=== PATIENT | female | born 1940 | race Caucasian/White ===

== ENCOUNTER 2017-04-23 13:13 | Inpatient (IN) | payer OTHER, MEDICARE ==
--- NOTE | 2017-04-23 13:42 | EDPHY ---
H & P Smoking Status: Former smoker Time Seen by Provider: 04/23/17 13:24 HPI/ROS: CHIEF COMPLAINT: Dyspnea HISTORY OF PRESENT ILLNESS: 76-year-old female presents to the emergency department by private vehicle with her daughter complaining of ongoing dyspnea for the last 2 weeks. The patient states that she is having increasing difficulty walking around. She is unable to walk up a flight of stairs without feeling extremely winded. She has no pain in her chest. No headache. She does note that she has some swelling in her lower legs as well. She is visiting from [place]. She flew here and is scheduled to fly home in 2 days. She was recently on a cruise around [place] and spent the day traveling yesterday and feels "extremely exhausted ". REVIEW OF SYSTEMS: Constitutional: No fever, no chills. Eyes: No double or blurry vision. ENT: No sore throat. Respiratory: Short of breath as above. No cough. Cardiac: No chest pain. Gastrointestinal: No abdominal pain, vomiting or diarrhea. Genitourinary: No dysuria. Musculoskeletal: No neck or back pain. Skin: No rashes. Neurological: No headache. (Marcelina Diaza Darryl) Past Medical/Surgical History: Chronic kidney disease, depression, GERD, hysterectomy, cholecystectomy (Marcelina Diaza Darryl) Social History: , visiting from [place] (Eneida Diaz) Physical Exam: General Appearance: Alert, no distress. 36.7, 97% on room air. She is speaking in full sentences. She appears comfortable. Eyes: Pupils equal and round. Extraocular motions are all intact. ENT: Mouth: Mucous membranes moist. Respiratory: No wheezing, rhonchi, or rales, lungs are clear to auscultation. Cardiovascular: Regular rate and rhythm. Gastrointestinal: Abdomen is soft and nontender, no masses, no rebound or guarding, bowel sounds normal. Neurological: Alert and oriented x 3, cranial nerves II through XII grossly intact Skin: Warm and dry, no rashes. Musculoskeletal: Nontender to palpate along the cervical, thoracic or lumbar spine. Neck is supple. Extremities: 1 to 2+ pedal edema lower extremities bilaterally. Psychiatric: Patient is oriented X 3, there is no agitation. (Larissa Diazrina Darryl) Constitutional: Initial Vital Signs Temperature (C) 36.7 C 04/23/17 13:16 Heart Rate 90 04/23/17 13:16 Respiratory Rate 18 04/23/17 13:16 Blood Pressure 144/63 H 04/23/17 13:16 O2 Sat (%) 97 04/23/17 13:16 O2 Delivery Mode Room Air Allergies/Adverse Reactions: No Known Allergies Allergy (Unverified 04/23/17 13:15) Home Medications: Medication Instructions Recorded Acetaminophen [Acetaminophen ER] 1,300 mg PO BID PRN 04/23/17 Cholecalciferol (Vitamin D3) 5,000 unit PO DAILY 04/23/17 [Vitamin D3] Cyanocobalamin [Vitamin B12 (*)] 100 mcg PO DAILY 04/23/17 Desvenlafaxine Succinate [Pristiq 100 mg PO HS 04/23/17 ER] Diclofenac Sodium 1% [Voltaren Gel 4 gm TP QID PRN 04/23/17 (*)] [place]-3 Fatty Acids [Fish Oil 1000 1,000 mg PO DAILY 04/23/17 mg (*)] Omeprazole [Prilosec 20 mg] 20 mg PO DAILY 04/23/17 Propylene Glycol/Peg 400 [Systane 1 drop EACHEYE PRN PRN 04/23/17 0.3-0.4% Eye Drops] buPROPion XL [Wellbutrin Xl] 150 mg PO HS 04/23/17 buPROPion XL [Wellbutrin Xl] 300 mg PO DAILY 04/23/17 Medical Decision Making - Diagnostics Imaging: I viewed and interpreted images myself - Diagnostics Imaging Results: Imaging Impressions Chest X-Ray 04/23/17 13:39 Impression: 1. Mild airways disease. Otherwise no acute process. 2. Moderate hiatal hernia. 3. Two old low thoracic mild compression fractures. Chest/Thorax CTA 04/23/17 14:29 Impression: 1. CT angio chest canceled prior to administering contrast. 2. Scanograms unchanged since one hour prior ED Course/Re-evaluation: I evaluated this patient and discussed the workup and care with Eneida Diaz. This patient is significantly anemic and is presenting here with shortness of breath. [place] This patient also problems with some peripheral edema and symptoms consistent with paroxysmal nocturnal dyspnea. Consequently, we will admit the patient to the hospital. Is not quite clear where she is bleeding from we will do a rectal exam. She will need blood products most likely and workup to make sure her she has a reasonable ejection fraction. (Aubrey Dale) 76-year-old female presents to the emergency department with 2 weeks of dyspnea on exertion. The patient is visiting from [place] and today she felt more fatigued and more short of breath and presented to the emergency department for evaluation. She denies pain in her chest. Upon further questioning the patient states that she really has not felt well for about a year. She has felt very low energy. It is within the last 2 weeks that she became increasingly more short of breath. She has especially short of breath when she is trying to walk a flight of stairs. Laboratory studies reveal hemoglobin of 7 and hematocrit of 22.6%. White blood cell count was normal. Platelets were normal. Creatinine is 1.1. Case was discussed with Dr. Aubrey Dale, secondary supervising physician, who agrees with patient being mid to the hospital. An echocardiogram has been ordered and is pending. EKG reveals normal sinus rhythm. This is reviewed by Dr. Aubrey Dale. Troponin was negative. BNP slightly elevated at 485. Patient's you D-dimer was just slightly elevated 0.74. I discussed this with Dr. Aubrey Dale and CT pulmonary angiogram was ordered. Dr. sunita german however has account for the patient's age and feels that 0.74 is normal for this patient and therefore does not need CT pulmonary angiogram. This order was canceled prior to her having any contrast or having the CT pulmonary angiogram. Patient will be admitted to the PCU to Dr. Bruno. (Eneida Diaz) Differential Diagnosis: Weakness including but not limited to electrolyte abnormality, depression, anxiety, CVA, spinal cord abnormality, and infectious causes. Shortness of breath including but not limited to pulmonary infectious process, COPD, asthma, pulmonary embolus and congestive heart failure. (Eneida Diaz) - Data Points Laboratory Results: Laboratory Results 04/23/17 13:45 04/23/17 13:45 04/23/17 04/23/17 04/23/17 14:34 14:04 13:45 WBC RBC Hgb Hct MCV MCH MCHC RDW Plt Count MPV Neut % (Auto) Lymph % (Auto) Emmet % (Auto) Eos % (Auto) Baso % (Auto) Nucleat RBC Rel Count Absolute Neuts (auto) Absolute Lymphs (auto) Absolute Monos (auto) Absolute Eos (auto) Absolute Basos (auto) Absolute Nucleated RBC Immature Gran % Immature Gran # D-Dimer Sodium Potassium Chloride Carbon Dioxide Anion Gap BUN Creatinine Estimated GFR Glucose Calcium Troponin I NT-Pro-B Natriuret Pep TSH 1.090 uIU/mL uIU/mL (0.465-4.680) Stool Occult Bld Scrn NEGATIVE (NEGATIVE) Patient ABO/Rh O POSITIVE Antibody Screen NEGATIVE Crossmatch IS Only See Detail 04/23/17 04/23/17 04/23/17 13:45 13:45 13:45 WBC 3.90 10^3/uL 10^3/uL (3.80-9.50) RBC 2.47 10^6/uL L 10^6/uL (4.18-5.33) Hgb 7.0 g/dL L g/dL (12.6-16.3) Hct 22.6 % L % (38.0-47.0) MCV 91.5 fL fL (81.5-99.8) MCH 28.3 pg pg (27.9-34.1) MCHC 31.0 g/dL L g/dL (32.4-36.7) RDW 14.6 % % (11.5-15.2) Plt Count 210 10^3/uL 10^3/uL (150-400) MPV 9.8 fL fL (8.7-11.7) Neut % (Auto) 65.9 % % (39.3-74.2) Lymph % (Auto) 19.0 % % (15.0-45.0) Emmet % (Auto) 12.8 % % (4.5-13.0) Eos % (Auto) 1.5 % % (0.6-7.6) Baso % (Auto) 0.3 % % (0.3-1.7) Nucleat RBC Rel Count 0.0 % % (0.0-0.2) Absolute Neuts (auto) 2.57 10^3/uL 10^3/uL (1.70-6.50) Absolute Lymphs (auto) 0.74 10^3/uL L 10^3/uL (1.00-3.00) Absolute Monos (auto) 0.50 10^3/uL 10^3/uL (0.30-0.80) Absolute Eos (auto) 0.06 10^3/uL 10^3/uL (0.03-0.40) Absolute Basos (auto) 0.01 10^3/uL L 10^3/uL (0.02-0.10) Absolute Nucleated RBC 0.00 10^3/uL 10^3/uL (0-0.01) Immature Gran % 0.5 % % (0.0-1.1) Immature Gran # 0.02 10^3/uL 10^3/uL (0.00-0.10) D-Dimer 0.74 ug/mLFEU H ug/mLFEU (0.00-0.50) Sodium 142 mEq/L mEq/L (134-144) Potassium 4.5 mEq/L mEq/L (3.5-5.2) Chloride 106 mEq/L mEq/L (97-110) Carbon Dioxide 26 mEq/l mEq/l (22-31) Anion Gap 10 mEq/L mEq/L (8-16) BUN 19 mg/dL mg/dL (7-23) Creatinine 1.1 mg/dL H mg/dL (0.6-1.0) Estimated GFR 48 Glucose 122 mg/dL H mg/dL (70-100) Calcium 8.8 mg/dL mg/dL (8.5-10.4) Troponin I < 0.012 ng/mL ng/mL (0.000-0.034) NT-Pro-B Natriuret Pep 485 pg/mL H pg/mL (0-450) TSH Stool Occult Bld Scrn Patient ABO/Rh Antibody Screen Crossmatch IS Only Medications Given: Discontinued Medications Sodium Chloride (Ns) 1,000 mls @ 0 mls/hr IV ONCE ONE PRN Reason: Wide Open Stop: 04/23/17 14:27 Last Admin: 04/23/17 14:40 Dose: 1,000 mls Departure - Departure Disposition: Home, Routine, Self-Care Clinical Impression: Anemia Qualifiers: Anemia type: unspecified type Qualified Code(s): D64.9 - Anemia, unspecified Fatigue Qualifiers: Fatigue type: unspecified Qualified Code(s): R53.83 - Other fatigue Dyspnea Qualifiers: Dyspnea type: unspecified Qualified Code(s): R06.00 - Dyspnea, unspecified Condition: Good
--- NOTE | 2017-04-23 13:51 | CPEKG ---
Heart Rate: 79 RR Interval: 759 P-R Interval: 156 QRSD Interval: 86 QT Interval: 384 QTC Interval: 441 P [place]: 2 QRS [place]: 9 T Wave [place]: 12 EKG Severity - NORMAL ECG - EKG Impression: SINUS RHYTHM Electronically Signed By: Aubrey Dale 23-Apr-2017 17:54:12
[2017-04-23 13:52] LABS: % IMMATURE GRANULYOCYTES 0.5 % (0.0-1.1); ABSOLUTE IMMATURE GRANULOCYTES 0.02 10^3/uL (0.00-0.10); ADD DIFF? NO; ADD MORPH? NO; ADD SCAN? NO; ATYPICAL LYMPHOCYTE FLAG 0 (0-99); FRAGMENT RBC FLAG 0 (0-99); HEMATOCRIT 22.6 % (38.0-47.0); LEFT SHIFT FLG 0 (0-99); LIPEMIA HEMOLYSIS FLAG 80 (0-99); MEAN CELL HEMOGLOBIN 28.3 pg (27.9-34.1); MEAN CELL VOLUME 91.5 fL (81.5-99.8); MEAN PLATELET VOLUME 9.8 fL (8.7-11.7); PLATELET CLUMPS FLAG 0 (0-99); PLATELET COUNT 210 10^3/uL (150-400); RED BLOOD CELL COUNT 2.47 10^6/uL (4.18-5.33); RED CELL DISTRIBUTION WIDTH 14.6 % (11.5-15.2)
[2017-04-23 14:11] LABS: ANION GAP 10 mEq/L (8-16); CALCIUM 8.8 mg/dL (8.5-10.4); CARBON DIOXIDE 26 mEq/l (22-31); CHLORIDE 106 mEq/L (97-110); CREATININE 1.1 mg/dL (0.6-1.0); GLOMERULAR FILTRATION RATE 48; GLUCOSE 122 mg/dL (70-100); POTASSIUM 4.5 mEq/L (3.5-5.2); SODIUM 142 mEq/L (134-144)
[2017-04-23 14:23] LABS: TROPONIN I < 0.012 ng/mL (0.000-0.034)
[2017-04-23] MEDS ORDERED: NS 1,000 ML IV ONE (14:26)
[2017-04-23] MEDS ORDERED: IOPAMIDOL (ISOVUE 370) 100 ML BTL IV ONE (14:32)
[2017-04-23] MEDS ORDERED: ONDANSETRON 4 MG/2 ML VIAL IVP PRN (15:30)
[2017-04-23] MEDS ORDERED: ONDANSETRON DISINTEGRATING 4 MG TAB PO PRN (15:30)
[2017-04-23] MEDS ORDERED: ACETAMINOPHEN 325 MG TAB PO PRN (15:30)
[2017-04-23] MEDS ORDERED: DICLOFENAC SODIUM 1% 100 GM GEL TP PRN (17:17)
[2017-04-23] MEDS ORDERED: FUROSEMIDE 40 MG/4 ML VIAL IVP ONE (17:17)
[2017-04-23] MEDS ORDERED: NON-FORMULARY NEW DRUG (Acetaminophen [Acetaminophen Er] 1,300 MG) PO PRN (17:17)
[2017-04-23] MEDS ORDERED: NON-FORMULARY NEW DRUG (Propylene Glycol/Peg 400 [Systane 0.3-0.4% Eye Drops] 1 DROP) EACHEYE PRN (17:17)
--- NOTE | 2017-04-23 17:38 | ECHO ---
[email or web address] [address] [address] Main: [phone] Fax: [email or web address] Echocardiogram Name: ARRON BARRIOS MR#: [id number] Study Date: 04/23/2017 Study Time: 02:41 PM Date of : 1940 Age: 76 year(s) Height: 160 cm (63 in.) Weight: 81.65 kg (180 lb.) BSA: 1.85 m2 Gender: Female Examination: Echo Indication: Cardiac: dyspnea, edema Image Quality: Adequate Contrast: Requested by: Eneida Diaz BP: / Heart Rate: Rhythm: Normal sinus rhythm Indication: Cardiac: dyspnea, edema Procedure Staff Teacher Of Gifted Students: Eneida Awad Reading Physician: Jackson Ruiz Requesting Provider: Conclusions: Normal global systolic LV function. Grade 1 diastolic dysfunction (abnormal relaxation). Mild mitral valve regurgitation is present. Mild tricuspid regurgitation is present. Measurements: Chambers Valvular Assessment AV/MV Valvular Assessment TV/PV Normal Normal Normal Name Value Range Name Value Range Name Value Range Ao Alba (MM): 2.9 cm (2.2 cm-3.7 AV Vmax: 1.43 m/s (1 m/s-1.7 TR Vmax: 2.51 mm/s ( - ) cm) m/s) TR PGmax: 25 mmHg ( - ) IVSd (2D): 0.9 cm (0.6 cm-1.1 AV maxP mmHg ( - ) syst. PAP: 30 mmHg ( - ) cm) LVOT Vmax: 1.03 m/s (0.7 m/s-1.1 PV Vmax: 1.07 m/s (0.6 m/s-0.9 LVDd (2D): 4.3 cm (3.9 cm-5.3 m/s) m/s) cm) MV E Vmax: 0.98 m/s ( - ) PV PGmax: 5 mmHg ( - ) LVDs (2D): 2.5 cm (2.1 cm-4 MV A Vmax: 1.49 m/s ( - ) cm) MV E/A: 0.66 ( - ) LVPWd (2D): 0.8 cm ( - ) MV maxP mmHg ( - ) LVEF (BP): 69 % (>=55 %) MV meanP mmHg ( - ) RVDd(2D): 3.0 cm (1.9 cm-3.8 cmmm) Continued Measurements: Chambers Valvular Assessment AV/MV Valvular Assessment TV/PV Name Value Name Value Name Value LADs Lon.0 cm MV DecTime: 203 m/s CVP (est.): 5 mmHg LA Area: 17.4 cm2 MV E/E' Septal: 14.70 LA Volume: 53 ml MV E/E' Lateral: 7.00 LA Volume Index: 28.6 ml/m2 MV VTI: 26.70 cm Patient: ARRON BARRIOS Study Date: 04/23/2017 Page 1 of 2 02:41 PM RA Area: 14.0 cm2 Additional Vessels Name Value Ao Ascendin.2 cm Findings: Left Ventricle: Normal size left ventricle. No LV hypertrophy. Normal global systolic LV function. EF is 69 %. No regional wall motion abnormality. Grade 1 diastolic dysfunction (abnormal relaxation). Right Ventricle: Normal size right ventricle. Normal RV function. Left Atrium: The left atrium is normal in size. Right Atrium: The right atrium is normal in size. Mitral Valve: There is mild thickening of the mitral valve leaflets. Mild mitral valve regurgitation is present. No mitral stenosis is present. Aortic Valve: The aortic valve is normal in appearance and function. The aortic valve is tri-leaflet. There is no aortic valve regurgitation. No aortic valve stenosis is present. Tricuspid Valve: The tricuspid valve is normal in appearance and function. Mild tricuspid regurgitation is present. Right ventricular systolic pressure measures 30mmHg. The pulmonary artery pressure is slightly increased. Pulmonic Valve: The pulmonic valve is normal in appearance and function. Mild pulmonic valve regurgitation is noted. Aorta: The aorta is normal. Normal size aortic root measuring 2.9 cm. Normal size ascending aorta measuring 3.2 cm. IVC: The IVC is normal sized. There is greater will 50% respiratory excursion. Pericardium: No pericardial effusion. (No Signature Object) Patient: ARRON BARRIOS Study Date: 04/23/2017 Page 2 of 2 02:41 PM [id number]
--- NOTE | 2017-04-23 19:35 | PDGENHP ---
History and Physical - Chief Complaint Acute shortness of breath - History of Present Illness Primary care provider: In [place], [place] HPI: 76-year-old female presents with acute shortness of breath characterized as dyspnea exacerbated with exertion, with onset of symptoms 2-3 weeks ago and associated with edema located in the bilateral lower extremities as well as a lack of energy which has been persistent for up to 1 year. The patient began experiencing her shortness of breath prior to a trip from [place] to [place], which then led to [place], and then back to [place] on the day prior to this presentation. The trip was a planned one, with her daughter, and they were on a cruise ship docked in 3 different [facility] for approx 1 week. During her trip, the patient freely admits she had dietary indiscretion. She also saw the cruise ship physician, who told her that she may be experiencing stable angina with the shortness of breath being an anginal equivalent. Patient denies any overt chest pain but does believe that her lower extremity edema has been progressing during her cruise. On the day of this presentation, the patient reports she sought medical attention because she is experiencing shortness of breath with very minimal physical activity, getting short of breath going up a flight of stairs. History Information - Allergies/Home Medication List Allergies/Adverse Reactions: No Known Allergies Allergy (Unverified 04/23/17 13:15) Home Medications: Acetaminophen [Acetaminophen ER] 1,300 mg PO BID PRN 04/23/17 [Last Taken Unknown] Cholecalciferol (Vitamin D3) [Vitamin D3] 5,000 unit PO DAILY 04/23/17 [Last Taken 04/23/17] Cyanocobalamin [Vitamin B12 (*)] 100 mcg PO DAILY 04/23/17 [Last Taken 04/23/17] Desvenlafaxine Succinate [Pristiq ER] 100 mg PO HS 04/23/17 [Last Taken 04/22/17 ] Diclofenac Sodium 1% [Voltaren Gel (*)] 4 gm TP QID PRN 04/23/17 [Last Taken Unknown] [place]-3 Fatty Acids [Fish Oil 1000 mg (*)] 1,000 mg PO DAILY 04/23/17 [Last Taken 04/23/17] Omeprazole [Prilosec 20 mg] 20 mg PO DAILY 04/23/17 [Last Taken 04/23/17] Propylene Glycol/Peg 400 [Systane 0.3-0.4% Eye Drops] 1 drop EACHEYE PRN PRN [Last Taken Unknown] buPROPion XL [Wellbutrin Xl] 150 mg PO HS 04/23/17 [Last Taken 04/22/17] buPROPion XL [Wellbutrin Xl] 300 mg PO DAILY 04/23/17 [Last Taken 04/23/17] I have personally reviewed and updated: family history, medical history, social history, surgical history - Past Medical History Additional medical history: Recently diagnosed with chronic kidney disease stage 3. Osteoporosis with previous osteoporotic fracture, currently on annual Reclast. Osteoarthritis in right knee, currently using topical NSAID - Surgical History Reports: no pertinent surgical hx - Family History Additional family history: Father with abdominal aortic aneurysm rupture, myocardial infarction - Social History Smoking Status: Former smoker Alcohol Use: None Drug Use: None Additional social history: Lives independently in [facility] Review of Systems Review of Systems: ROS: 10pt was reviewed & negative except for what was stated in HPI & below Constitutional: Reports: weakness Cardiac: Reports: edema Respiratory: Reports: shortness of breath Physical Exam Physical Exam: Temp Pulse Resp BP Pulse Ox 37.1 C 76 18 124/64 H 95 04/23/17 18:55 04/23/17 18:55 04/23/17 18:55 04/23/17 18:55 04/23/17 18:55 Constitutional: no apparent distress, appears nourished, not in pain, obese Eyes: PERRL, anicteric sclera, EOMI Ears, Nose, Mouth, Throat: moist mucous membranes, hearing normal, ears appear normal, no oral mucosal ulcers Cardiovascular: systolic murmur (1/6 at apex), JVD, edema (1+ bilateral lower extremity), No irregularly irregular, No tachycardia, No bradycardia Respiratory: inspiratory crackles (Bilateral bases), No reduced air movement, No expiratory wheeze, No bronchial breath sounds, No respiratory distress Gastrointestinal: normoactive bowel sounds, soft, non-tender abdomen, no palpable masses, No distension Skin: other (Scattered ecchymoses bilateral lower extremities, 1 small abrasion over left berg) Neurologic: AAOx3, sensation intact bilaterally, CN II-XII Intact, No weakness ( Motor 5/5 bilateral lower extremity), No facial droop Psychiatric: interacting appropriately, not anxious, not encephalopathic, thought process linear Lab Data & Imaging Review 04/23/17 13:45 04/23/17 13:45 WBC 3.90 10^3/uL (3.80-9.50) 04/23/17 13:45 RBC 2.47 10^6/uL (4.18-5.33) L 04/23/17 13:45 Hgb 7.0 g/dL (12.6-16.3) L 04/23/17 13:45 Hct 22.6 % (38.0-47.0) L 04/23/17 13:45 MCV 91.5 fL (81.5-99.8) 04/23/17 13:45 MCH 28.3 pg (27.9-34.1) 04/23/17 13:45 MCHC 31.0 g/dL (32.4-36.7) L 04/23/17 13:45 RDW 14.6 % (11.5-15.2) 04/23/17 13:45 Plt Count 210 10^3/uL (150-400) 04/23/17 13:45 MPV 9.8 fL (8.7-11.7) 04/23/17 13:45 Neut % (Auto) 65.9 % (39.3-74.2) 04/23/17 13:45 Lymph % (Auto) 19.0 % (15.0-45.0) 04/23/17 13:45 [place] % (Auto) 12.8 % (4.5-13.0) 04/23/17 13:45 Eos % (Auto) 1.5 % (0.6-7.6) 04/23/17 13:45 Baso % (Auto) 0.3 % (0.3-1.7) 04/23/17 13:45 Nucleat RBC Rel Count 0.0 % (0.0-0.2) 04/23/17 13:45 Absolute Neuts (auto) 2.57 10^3/uL (1.70-6.50) 04/23/17 13:45 Absolute Lymphs (auto) 0.74 10^3/uL (1.00-3.00) L 04/23/17 13:45 Absolute Monos (auto) 0.50 10^3/uL (0.30-0.80) 04/23/17 13:45 Absolute Eos (auto) 0.06 10^3/uL (0.03-0.40) 04/23/17 13:45 Absolute Basos (auto) 0.01 10^3/uL (0.02-0.10) L 04/23/17 13:45 Absolute Nucleated RBC 0.00 10^3/uL (0-0.01) 04/23/17 13:45 Immature Gran % 0.5 % (0.0-1.1) 04/23/17 13:45 Immature Gran # 0.02 10^3/uL (0.00-0.10) 04/23/17 13:45 D-Dimer 0.74 ug/mLFEU (0.00-0.50) H 04/23/17 13:45 Sodium 142 mEq/L (134-144) 04/23/17 13:45 Potassium 4.5 mEq/L (3.5-5.2) 04/23/17 13:45 Chloride 106 mEq/L (97-110) 04/23/17 13:45 Carbon Dioxide 26 mEq/l (22-31) 04/23/17 13:45 Anion Gap 10 mEq/L (8-16) 04/23/17 13:45 BUN 19 mg/dL (7-23) 04/23/17 13:45 Creatinine 1.1 mg/dL (0.6-1.0) H 04/23/17 13:45 Estimated GFR 48 04/23/17 13:45 Glucose 122 mg/dL (70-100) H 04/23/17 13:45 Calcium 8.8 mg/dL (8.5-10.4) 04/23/17 13:45 Troponin I < 0.012 ng/mL (0.000-0.034) 04/23/17 13:45 NT-Pro-B Natriuret Pep 485 pg/mL (0-450) H 04/23/17 13:45 TSH 1.090 uIU/mL (0.465-4.680) 04/23/17 13:45 Stool Occult Bld Scrn NEGATIVE (NEGATIVE) 04/23/17 14:04 Patient ABO/Rh O POSITIVE 04/23/17 14:34 Antibody Screen NEGATIVE 04/23/17 14:34 Crossmatch IS Only See Detail 04/23/17 14:34 Visualized and Interpreted Chest x-ray results: Yes Chest X-Ray results: no infiltrate (, old thoracic compression fracture, hiatal hernia) Visualized and Interpreted EKG results: Yes EKG Interpretation: Positive for: other (Normal sinus rhythm) Assessment & Plan Assessment: 76-year-old female presenting with exertional shortness of breath, lower extremity edema, concerning for possible acute diastolic congestive heart failure exacerbation in the setting of chronic kidney disease stage 3 complicated by suspected anemia of chronic kidney disease Plan: 1. Shortness of breath. Acute, new problem this provider, further workup indicated. Most likely etiology is diastolic congestive heart failure, exacerbated by recent dietary indiscretions and underlying chronic kidney disease -D-dimer is negative when adjusted for age, no indication for CT angiogram, patient's lower extremity edema and shortness of breath symptoms manifested prior to her recent travels, making DVT and PE very unlikely -get echocardiogram to evaluate ejection fraction -reassess symptoms in a.m. after receiving IV Lasix -get Lexiscan stress test to rule out obstructive coronary disease and exercise limiting OA, keep NPO in a.m. in case she has abnormal stress requires cardiology consultation for potential catheterization 2. Chronic kidney disease stage 3. Patient reports that she recently received this diagnosis several months ago from her primary care provider, but she reports that she has not had any renal evaluation performed in the outpatient setting -creatinine 1.1, continue to monitor with diuresis -counseled the patient and her daughter that she would most likely benefit from outpatient nephrology consultation upon returning to her home state, as this will assist in the management of not only CKD comorbid conditions, but also perform a thorough workup to the actual cause of her underlying condition 3. Anemia. Suspect secondary to chronic kidney disease, fecal occult blood test negative, hemoglobin 7 and may be contributing to presenting symptoms -transfuse 1 unit PRBCs, reassess hemoglobin level in a.m. -give 40 mg of IV Lasix immediately after blood transfusion given hypervolemia Diet. Cardiac diet, NPO in a.m. Prophylaxis. High risk patient, heparin subcu Code. Full Disposition. Anticipated discharge 04/24, pending further workup as outlined above. If patient requires cardiac catheterization for possible obstructive coronary disease, then she will be upgraded to inpatient admission status for reasonable medical necessity including anticipated length stay being greater than 2 midnights and her having CHF in the setting of obstructive coronary disease. Discussed patient's presentation with Eneida Diaz, emergency department provider, we both agree the patient is stable for the PCU at this time.
[2017-04-23] MEDS: HEPARIN 5,000 UNIT/0.5 ML SYR SC SCH (21:30)
[2017-04-24] MEDS: buPROPion XL 150 MG TAB PO SCH ×3 (04:24→20:42)
[2017-04-24] MEDS: NON-FORMULARY NEW DRUG (Desvenlafaxine Succinate [Pristiq] 100 MG) PO SCH ×2 (04:24→20:41)
[2017-04-24 05:30] LABS: % IMMATURE GRANULYOCYTES 0.5 % (0.0-1.1); ABSOLUTE IMMATURE GRANULOCYTES 0.02 10^3/uL (0.00-0.10); ADD DIFF? NO; ADD MORPH? NO; ADD SCAN? NO; ATYPICAL LYMPHOCYTE FLAG 10 (0-99); FRAGMENT RBC FLAG 0 (0-99); HEMATOCRIT 24.7 % (38.0-47.0); HEMOGLOBIN 7.8 g/dL (12.6-16.3); LEFT SHIFT FLG 0 (0-99); LIPEMIA HEMOLYSIS FLAG 80 (0-99); MEAN CELL HEMOGLOBIN 28.1 pg (27.9-34.1); MEAN CELL HEMOGLOBIN CONCENTR. 31.6 g/dL (32.4-36.7); MEAN CELL VOLUME 88.8 fL (81.5-99.8); MEAN PLATELET VOLUME 10.7 fL (8.7-11.7); PLATELET CLUMPS FLAG 0 (0-99); PLATELET COUNT 236 10^3/uL (150-400); RED BLOOD CELL COUNT 2.78 10^6/uL (4.18-5.33); RED CELL DISTRIBUTION WIDTH 15.9 % (11.5-15.2)
[2017-04-24 05:48] LABS: ALANINE AMINOTRANSFERASE 30 IU/L (9-52); ALBUMIN 3.7 g/dL (3.5-5.0); ALKALINE PHOSPHATASE 58 IU/L (38-126); ANION GAP 10 mEq/L (8-16); ASPARTATE AMINOTRANSFERASE 20 IU/L (14-46); BILIRUBIN,TOTAL 0.7 mg/dL (0.1-1.4); CALCIUM 8.6 mg/dL (8.5-10.4); CARBON DIOXIDE 25 mEq/l (22-31); CHLORIDE 106 mEq/L (97-110); GLOMERULAR FILTRATION RATE 54; GLUCOSE 88 mg/dL (70-100); MAGNESIUM 2.1 mg/dL (1.6-2.3); POTASSIUM 3.9 mEq/L (3.5-5.2); SODIUM 141 mEq/L (134-144); TOTAL PROTEIN 5.9 g/dL (6.3-8.2)
[2017-04-24] MEDS: HEPARIN 5,000 UNIT/0.5 ML SYR SC SCH ×3 (06:01→20:42)
[2017-04-24] MEDS ORDERED: NON-FORMULARY NEW DRUG (Cholecalciferol (Vitamin D3) [Vitamin D3] 5,000 UNIT) PO SCH (09:00)
[2017-04-24] MEDS ORDERED: NON-FORMULARY NEW DRUG (Omeprazole [Prilosec 20 Mg] 20 MG) PO SCH (09:00)
[2017-04-24] MEDS: OMEGA-3 FATTY ACIDS 1,000 MG CAP PO SCH (10:26)
[2017-04-24] MEDS: CHOLECALCIFEROL VIT D3 1,000 UNITS TAB PO SCH (10:26)
[2017-04-24] MEDS: CYANO/VITAMIN B12 100 MCG TAB PO SCH (10:27)
[2017-04-24] MEDS: FUROSEMIDE 40 MG/4 ML VIAL IVP SCH ×2 (10:27→12:50)
[2017-04-24] MEDS: PANTOPRAZOLE SODIUM 40 MG TAB PO SCH (10:27)
[2017-04-24] MEDS ORDERED: REGADENOSON 0.4 MG/5 ML SYR IVP ONE (10:47)
--- NOTE | 2017-04-24 11:01 | PDCARST ---
CAR Stress Test Results Type of Stress Test: Lexiscan stress testing Indication: Chest pains Description of Procedure: Consent was signed and baseline ECG was reviewed. Heart rate, blood pressure, and oxygen saturations were monitored over the course of this study. Patient did appreciate dyspnea with injection which quickly resolved. No ECG changes were noted with this study. Impression: Unremarkable lexiscan stress testing (no ECG changes were noted) Conclusion: Nuclear images are pending
--- NOTE | 2017-04-24 14:16 | ASMTCMCOM ---
CM Note CM Note Notes: Pt admitted with dyspnea, weakness and anemia. Hx recent dx CKD. Lives in [place], [place]. She came from [place] to [place] and then went on a 1 week cruise to [place] with her daughter. Cardiology workup in progress. Anticipate d/c with no CM needs but will continue to follow for any unanticipated d/c needs. Date Signed: 04/24/2017 02:16 PM Electronically Signed By:CASSANDRA Arias
--- NOTE | 2017-04-24 16:57 | HOSPPROG ---
Hospitalist Progress Note Assessment/Plan: * SOB - suspect due to anemia. ruling out anginal equivalent with stress test * Anemia - Hg 7 on admit - no previous h/o anemia -s/p 1 unit prbc -check iron studies -had recent colonoscopy, would also need EGD if iron deficiency confirmed * Abnormal stress test -rest images in am * Possible diastolic CHF -s/p IV lasix - now euvolemic Subjective: No new complaints. Objective: Vital Signs Temp Pulse Resp BP Pulse Ox 37.1 C 85 12 114/87 H 95 04/24/17 16:00 04/24/17 16:00 04/24/17 16:00 04/24/17 16:00 04/24/17 16:00 Laboratory Results 04/24/17 04:28 04/24/17 04:28 04/23/17 04/24/17 04/25/17 05:59 05:59 05:59 Intake Total 1650 Output Total 1003 300 Balance 647 -300 stress test discussed with Dr. Reis - anterior defect on stress - needs rest images ECHO - normal EF EKG viewed, my personal interpretation is - NSR, no ischemic changes - Physical Exam Constitutional: no apparent distress, appears nourished, not in pain Cardiovascular: regular rate and rhythym, no murmur, rub, or gallop Respiratory: no respiratory distress, no rales or rhonchi, clear to auscultation Gastrointestinal: normoactive bowel sounds, soft, non-tender abdomen, no palpable masses Skin: no rashes or abrasions, no fluctuance, no induration Neurologic: AAOx3, sensation intact bilaterally Psychiatric: interacting appropriately, not anxious, not encephalopathic, thought process linear ICD10 Worksheet Patient Problems: Problems Problem Status Onset Anemia Acute Dyspnea Acute Fatigue Acute
--- NOTE | 2017-04-24 17:23 | PDMN ---
Medical Necessity Medical necessity: C/M review: est. > 2 MN LOS for eval and TX of acute shortness of breath - suspect due to anemia, anemia, 04/24/2016 abnormal stress myocardial perfusion scan test, possible diastolic CHF requiring 04/23/2017 1 unit PRBCs, planned myocardial perfusion scan rest imaging, iron lab studies, ongoing cardiac monitoring, comorbid no previous history of anemia per 2016 Hospitalist progress note.
[2017-04-25 04:51] LABS: % IMMATURE GRANULYOCYTES 0.2 % (0.0-1.1); ABSOLUTE IMMATURE GRANULOCYTES 0.01 10^3/uL (0.00-0.10); ADD DIFF? NO; ADD MORPH? NO; ADD SCAN? NO; ATYPICAL LYMPHOCYTE FLAG 20 (0-99); FRAGMENT RBC FLAG 0 (0-99); HEMOGLOBIN 8.1 g/dL (12.6-16.3); LEFT SHIFT FLG 0 (0-99); LIPEMIA HEMOLYSIS FLAG 80 (0-99); MEAN CELL HEMOGLOBIN 27.6 pg (27.9-34.1); MEAN CELL HEMOGLOBIN CONCENTR. 31.2 g/dL (32.4-36.7); MEAN CELL VOLUME 88.7 fL (81.5-99.8); MEAN PLATELET VOLUME 10.4 fL (8.7-11.7); PLATELET CLUMPS FLAG 0 (0-99); PLATELET COUNT 218 10^3/uL (150-400); RED BLOOD CELL COUNT 2.93 10^6/uL (4.18-5.33); RED CELL DISTRIBUTION WIDTH 15.8 % (11.5-15.2)
[2017-04-25 05:23] LABS: % SATURATION 5 % (20-55); TOTAL IRON BINDING CAPACITY 389 ug/dL (260-490)
[2017-04-25] MEDS: HEPARIN 5,000 UNIT/0.5 ML SYR SC SCH ×3 (05:32→21:53)
[2017-04-25 05:50] LABS: FERRITIN - BCH 12.7 ng/mL (6.2-264.0)
[2017-04-25] MEDS: CHOLECALCIFEROL VIT D3 1,000 UNITS TAB PO SCH (10:49)
[2017-04-25] MEDS: buPROPion XL 150 MG TAB PO SCH ×2 (10:49→21:53)
[2017-04-25] MEDS: OMEGA-3 FATTY ACIDS 1,000 MG CAP PO SCH (10:50)
[2017-04-25] MEDS: PANTOPRAZOLE SODIUM 40 MG TAB PO SCH (10:50)
[2017-04-25] MEDS: CYANO/VITAMIN B12 100 MCG TAB PO SCH (10:50)
--- NOTE | 2017-04-25 11:07 | HOSPPROG ---
Hospitalist Progress Note Assessment/Plan: 76 yo F p/w dyspnea, new iron deficiency anemia dyspnea: almost certainly attributable to anemia stress can be considered neg low suspcion for PE and pulm parenchyma unremarkable (images reviewed/interp by me) anemia: per pt, had colonoscopy in [place] 1 year ago w 1 polyp no signs bleeding but reasonable to do EGD (d/w GI MD, will attempt to do today) give IV iron X 1 osteoporosis: comtinue meds iron deficiency: IF iron X 1 dispo: inpatient Subjective: stress and rest nuc images equivalent. denies melena, brbpr, Objective: Vital Signs Temp Pulse Resp BP Pulse Ox 36.2 C 78 18 124/96 H 94 04/25/17 07:45 04/25/17 07:45 04/25/17 07:45 04/25/17 07:45 04/25/17 07:45 Laboratory Results 04/25/17 04:12 04/24/17 04/25/17 04/26/17 05:59 05:59 05:59 Intake Total 280 Output Total 500 Balance -220 - Physical Exam Constitutional: no apparent distress, appears nourished Eyes: PERRL, anicteric sclera Ears, Nose, Mouth, Throat: moist mucous membranes, hearing normal Cardiovascular: regular rate and rhythym, no murmur, rub, or gallop, No systolic murmur Respiratory: no respiratory distress, no rales or rhonchi Gastrointestinal: normoactive bowel sounds, soft, non-tender abdomen Genitourinary: no bladder fullness, No kendall in urethra Skin: warm, normal color Musculoskeletal: full muscle strength, no muscle tenderness, normal joint ROM Neurologic: AAOx3 Psychiatric: interacting appropriately ICD10 Worksheet Patient Problems: Problems Problem Status Onset Anemia Acute Fatigue Acute Dyspnea Acute
[2017-04-25] MEDS: SODIUM FERRIC GLUCONAT/SUCROSE 125 MG in NS 100 ML IV SCH (11:31)
[2017-04-25] MEDS ORDERED: PROPOFOL 200 MG/20 ML VIAL ONE (13:33)
[2017-04-25] MEDS ORDERED: fentaNYL 100 MCG/2 ML INJ ONE (13:33)
--- NOTE | 2017-04-25 13:52 | PDANEPAE ---
ANE History of Present Illness severe anemia, for EGD ANE Past Medical History - Cardiovascular History Hx Hypertension: No Hx Arrhythmias: No Hx Coronary Artery / Peripheral Vascular Disease: No Hx Palpitations: No - Pulmonary History Hx COPD: No Hx Asthma/Reactive Airway Disease: No Hx Oxygen in Use at Home: No Hx Sleep Apnea: No Sleep Apnea Screening Result - Last Documented: Positive - Endocrine History Hx Diabetes: No Hypothyroid: No Hyperthyroid: No - Renal History Hx Renal Disorders: Yes Renal History Comment: CKD stage 3 - Liver History Hx Hepatic Disorders: Yes Hepatic History Comment: Jaundice in youth - Neurological & Psychiatric Hx Hx Neurological and Psychiatric Disorders: Yes Neurological / Psychiatric History Comment: history of mild short-term memory problems for about 10 years - GI History GERD: no Hx Gastrointestinal Disorders: Yes Gastrointestinal History Comment: hx of hiatal hernia - Chronic Pain History Chronic Pain: Yes ANE Review of Systems Review of systems is: negative Review of Systems: - Exercise capacity METS (RN): 4 METS (until recent onset of SOB) ANE Patient History - Allergies Allergies/Adverse Reactions: No Known Allergies Allergy (Unverified 04/23/17 13:15) - Home Medications Home Medications: Acetaminophen [Acetaminophen ER] 1,300 mg PO BID PRN 04/23/17 [Last Taken Unknown] Cholecalciferol (Vitamin D3) [Vitamin D3] 5,000 unit PO DAILY 04/23/17 [Last Taken 04/23/17] Cyanocobalamin [Vitamin B12 (*)] 100 mcg PO DAILY 04/23/17 [Last Taken 04/23/17] Desvenlafaxine Succinate [Pristiq ER] 100 mg PO HS 04/23/17 [Last Taken 04/22/17 ] Diclofenac Sodium 1% [Voltaren Gel (*)] 4 gm TP QID PRN 04/23/17 [Last Taken Unknown] [place]-3 Fatty Acids [Fish Oil 1000 mg (*)] 1,000 mg PO DAILY 04/23/17 [Last Taken 04/23/17] Omeprazole [Prilosec 20 mg] 20 mg PO DAILY 04/23/17 [Last Taken 04/23/17] Propylene Glycol/Peg 400 [Systane 0.3-0.4% Eye Drops] 1 drop EACHEYE PRN PRN [Last Taken Unknown] buPROPion XL [Wellbutrin Xl] 150 mg PO HS 04/23/17 [Last Taken 04/22/17] buPROPion XL [Wellbutrin Xl] 300 mg PO DAILY 04/23/17 [Last Taken 04/23/17] - NPO status NPO Since - Liquids (Date): 04/24/17 NPO Since - Liquids (Time): 00:00 NPO Since - Solids (Date): 04/24/17 NPO Since - Solids (Time): 00:00 - Anes Hx Anes Hx: no prior problems - Smoking Hx Smoking Status: Former smoker (1 ppdx20 years, until 1986) Marijuana use: No - Alcohol Use Alcohol Use: None - Family Anes Hx Family Anes Hx: none ANE Labs/Vital Signs - Labs Result Diagrams: 04/25/17 04:12 04/24/17 04:28 - Vital Signs Blood Pressure: 138/53 Heart Rate: 65 Respiratory Rate: 20 O2 Sat (%): 95 Height: 161.29 cm Weight: 79.9 kg ANE Physical Exam - Airway Neck exam: decreased ROM (decreased extension, lateral rotation) Mouth exam: normal dental/mouth exam - Pulmonary Pulmonary: clear to auscultation - Cardiovascular Cardiovascular: regular rate and rhythym ANE Anesthesia Plan Anesthesia Plan: GA with mask
--- NOTE | 2017-04-25 14:12 | GIREPORT ---
[facility] Surgical Services - Endoscopy Department Patient Name: Genesis Andino Procedure Date: 04/25/2017 1:17 PM Patient Type: Inpatient Attending MD/ ER Physician: Susy Ramirez MD Procedure: Upper GI endoscopy Indications: Iron deficiency anemia Providers: Susy Ramirez MD Medicines: Monitored Anesthesia Care Complications: No immediate complications. Description of Procedure: After obtaining informed consent, the endoscope was passed under direct vision. Throughout the procedure, the patient's blood pressure, pulse, and oxygen saturations were monitored continuously. The Endoscope was intro duced through the mouth, and advanced to the third part of duodenum. The uppe r GI endoscopy was accomplished without difficulty. The patient tolerated th e procedure well. Findings: A medium-sized hiatal hernia was present. A few localized, small non-bleeding erosions were found in the gastric antrum. There were no stigmata of recent bleeding. Biopsies were taken with a cold forceps for histology. Estimated blood loss was minimal. The examined duodenum was normal. Biopsies for histology were taken wit h a cold forceps for evaluation of celiac disease. Estimated blood loss was minimal. Estimated Blood Loss: Estimated blood loss was minimal. Post Op Diagnosis: - Medium-sized hiatal hernia no Jose erosions seen. - Non-bleeding erosive gastropathy. Biopsied. No active bleeding low ri sk for bleeding. Suspect NSAIDS induced. - Normal examined duodenum. Biopsied. Recommendation: - Await pathology results. - Resume previous diet. - Continue present medications. - Avoid NSAIDS. - Recommend check CBC and iron panel in 3 months with PCP back home if not better then recommend pill capsule endoscopy. - Return patient to [facility] for ongoing care. - Thank you for allowing me to participate in the care of your patient. Attending Participation: I personally performed the entire procedure. Susy Ramirez MD Susy Ramirez MD 04/25/2017 2:12:37 PM This report has been signed electronicallySusy Ramirez MD Number of Addenda: 0 Note Initiated On: 04/25/2017 1:17 PM [email or web address]
--- NOTE | 2017-04-25 14:14 | POSTOPPROG ---
Post Op Note Date of Operation: 04/25/17 Surgeon: Susy Ramirez Pre-op Diagnosis: anemia Post-op Diagnosis: gastritis Indication: anemia Procedure: egs Findings: Gastritis Inf/Abcess present in the surg proc area at time of surgery?: No Complications: none
[2017-04-25] MEDS ORDERED: fentaNYL 100 MCG/2 ML INJ IVP PRN (14:15)
[2017-04-25] MEDS ORDERED: HYDROCODONE/APAP 5/325 TAB PO PRN (14:15)
[2017-04-25] MEDS ORDERED: NALOXONE HCL 0.4 MG/ML INJ IVP PRN (14:15)
--- NOTE | 2017-04-25 14:30 | POSTANESTH ---
Post Anesthetic Evaluation Cardiovascular Status: Normal, Stable Respiratory Status: Normal, Stable Level of Consciousness/Mental Status: Can Participate in Eval Pain Control: Adequate, Prn Tx Ordered Nausea/Vomiting Control: Adequate, Prn Tx Ordered Complications Possibly Related to Anesthesia: None Noted
[2017-04-25] MEDS ORDERED: Desvenlafaxine Succinate [Pristiq] 100 MG PO SCH (21:00)
--- NOTE | 2017-04-25 22:47 | GCON ---
[f rep st] CONSULTATION DATE OF CONSULTATION: 04/25/2017 REFERRING PHYSICIAN: Colt Arce MD CHIEF COMPLAINT: Anemia. REASON FOR CONSULTATION: I am asked to see this patient in consultation by Dr. Arce for chief comp laint of anemia. HISTORY OF PRESENT ILLNESS: The patient is a 76-year-old initially admitted a few days ago with shor tness of breath. She had a negative cardiac workup but was found to have significant anemia, initial ly with a hemoglobin of 7.0. She was transfused. Somewhat feels better but still having some shortn ess of breath. Patient does have documented iron deficiency anemia. She states that she had a colon oscopy last year with removal of 1 polyp and was recommended that she repeat her colonoscopy in 3 yea rs. She has had no nausea and vomiting, but does have chronic GERD symptoms that are controlled on o meprazole, which she has been on for at least the last 4 years. She has occasional dysphagia to pill s, but not to food. There has been no diarrhea. She does have chronic constipation with some pellet -like stools the last few days. She has had no blood in her stools, is unaware of any melena. How er, she has been on some NSAIDs. Last month was on ibuprofen, but then stopped when she has been nabor rt of breath. She had a week of meloxicam, but then also stopped secondary to shortness of breath, a nd does use topical Voltaren for her knee arthritis. She is not aware of ever having peptic ulcer be fore. The patient was recently on a cruise ship and did go off her regular diet and did drink alcoho l, but generally does not have chronic alcohol use, is not aware of any prior history of liver diseas e. ALLERGIES: No known medication allergies. HOME MEDICATIONS: Include multivitamin, Tylenol, omeprazole, Voltaren gel, Pristiq, and Wellbutrin. PAST MEDICAL HISTORY: Notable for arthritis and GERD. She does have chronic kidney disease and oste oporosis. FAMILY HISTORY: Negative for history of colon cancer. SOCIAL HISTORY: She is a former smoker. REVIEW OF SYSTEMS: I performed a complete Review of Systems which is negative except for the pertine nt positives or negatives as noted above in the HPI. PHYSICAL EXAM: VITAL SIGNS: Afebrile at 36.2, BP 124/96, pulse 78. CONSTITUTIONAL: She is alert a nd oriented. No apparent distress. HEENT: Eyes: No scleral icterus. No oral lesions. CARDIOVASC ULAR: Regular rate and rhythm. CHEST: Clear to auscultation. ABDOMEN: Soft and nontender. I det ect no ascites. NEUROLOGIC: Grossly nonfocal. SKIN: No obvious rashes. LABORATORY DATA: On admission, her hematocrit was 22.6 with a hemoglobin of 7.0, white count 3.90, a nd platelets 210. After transfusion, her hematocrit is now 26 with a hemoglobin of 8.1. Chemistries show normal BUN and creatinine of 20 and 1.0. Electrolytes are normal. Liver function tests are wi thin normal limits. Iron is low at 19 with a 5% saturation. ASSESSMENT: Iron deficiency anemia without acute evidence of gastrointestinal bleeding, although derek prince is fairly anemic and symptomatic. She did have a recent colonoscopy. I think given her nonster oidal anti-inflammatory drug use, she would be at risk for gastritis, peptic ulcers, or gastroesophag eal reflux disease related esophagitis that could account for slow iron loss. Given patient's sympto ms, I would recommend we proceed with upper endoscopy today for further evaluation. If clear cause i s not identified on upper endoscopy, could consider outpatient pill camera. PLAN: 1. Continue PPI for now. 2. Plan for upper endoscopy later today for evaluation of iron deficiency anemia with negative colon oscopy. Further recommendations to follow. Thanks for this consult. /[id number]/MODL
[2017-04-26] MEDS: HEPARIN 5,000 UNIT/0.5 ML SYR SC SCH (05:53)
[2017-04-26] MEDS: SODIUM FERRIC GLUCONAT/SUCROSE 125 MG in NS 100 ML IV SCH (08:58)
[2017-04-26] MEDS: CHOLECALCIFEROL VIT D3 1,000 UNITS TAB PO SCH (08:59)
[2017-04-26] MEDS: buPROPion XL 150 MG TAB PO SCH (09:02)
[2017-04-26] MEDS: PANTOPRAZOLE SODIUM 40 MG TAB PO SCH (09:02)
[2017-04-26] MEDS: CYANO/VITAMIN B12 100 MCG TAB PO SCH (09:02)
[2017-04-26] MEDS: OMEGA-3 FATTY ACIDS 1,000 MG CAP PO SCH (09:02)
[2017-04-26 09:19] VITALS: BP 141/72; PULSE 82; RESP 14; TEMP 98.3; O2SAT 95
--- NOTE | 2017-04-26 10:20 | HOSPPROG ---
Hospitalist Progress Note Assessment/Plan: 76 yo F p/w dyspnea, new iron deficiency anemia dyspnea: almost certainly attributable to anemia stress can be considered neg low suspcion for PE and pulm parenchyma unremarkable (images reviewed/interp by me) anemia: per pt, had colon[place] in [place] 1 year ago w 1 polyp no signs bleeding but reasonable to do EGD (d/w GI MD, will attempt to do today) give IV iron X 1 osteoporosis: comtinue meds iron deficiency: IF iron X 2 dispo: home today > 30 minutes on dc Subjective: feels better. ready for dc Objective: Vital Signs Temp Pulse Resp BP Pulse Ox 36.8 C 82 14 141/72 H 95 04/26/17 08:00 04/26/17 08:00 04/26/17 08:00 04/26/17 08:00 04/26/17 08:00 Laboratory Results 04/25/17 04:12 04/25/17 04/26/17 04/27/17 05:59 05:59 05:59 Intake Total 280 1140 150 Output Total 500 1400 Balance -220 -260 150 - Physical Exam Constitutional: no apparent distress, appears nourished Eyes: PERRL, anicteric sclera Ears, Nose, Mouth, Throat: moist mucous membranes, hearing normal Cardiovascular: regular rate and rhythym, no murmur, rub, or gallop Respiratory: no respiratory distress, no rales or rhonchi Gastrointestinal: normoactive bowel sounds, soft, non-tender abdomen Genitourinary: no bladder fullness, No kendall in urethra Skin: warm, normal color Musculoskeletal: full muscle strength, no muscle tenderness Neurologic: AAOx3 ICD10 Worksheet Patient Problems: Problems Problem Status Onset Anemia Acute Dyspnea Acute Fatigue Acute
--- NOTE | 2017-04-26 12:07 | ASDISCHSUM ---
Discharge Information Plan Status:Home with No Needs Medically Cleared to Leave:04/25/2017 Discharge Date:04/26/2017 11:14 AM CM D/C Disposition:Home, Routine, Self-Care ADT D/C Disposition:Home, Routine, Self-Care Projected Discharge Date:04/26/2017 11:14 AM Transportation at D/C:Family Discharge Delay Reason: Follow-Up Date:04/26/2017 11:14 AM Discharge Slot: Final Diagnosis: Placement Information Patient Contact Information Contact Name:CANDICE Relationship: Address:[address] [place] [address] Work Phone: City:[place] Phone: State/Zip Code:[place] [address] Email: Financial Information Financial Class: Primary Plan Desc:MEDICARE INPATIENT Primary Plan Number:[id number] Secondary Plan Desc:[employer]/M[employer] SUPPLEMENT Secondary Plan Number:[id number] Assessment Information LACE LACE Acuity / Level of Care Answers: Was the patient admitted to hospital via the emergency department? Yes: Comorbidities - select Answers: Mild liver or renal all that apply disease Emergency dept visits in Answers: 1 last 6 months Score: 6 Date Signed: 04/23/2017 03:28 PM Electronically Signed By:Becca Ferraro RN [facility] CM Progress Note CM Note CM Note Notes: Pt admitted with dyspnea, weakness and anemia. Hx recent dx CKD. Lives in [place], [place]. [place] came from [place] and then went on a 1 week cruise to [place] with her daughter. Cardiology workup in progress. Anticipate d/c with no CM needs but will continue to follow for any unanticipated d/c needs. Date Signed: 04/24/2017 02:16 PM Electronically Signed By:CASSANDRA Arias Intervention Information
--- NOTE | 2017-04-26 15:45 | GDS ---
[f rep st] DISCHARGE SUMMARY DISCHARGE DIAGNOSES: 1. Dyspnea. 2. Iron-deficiency anemia without active blood loss. 3. Osteoarthritis of left knee. HOSPITAL COURSE: Please see admission History and Physical by Dr. Julien Bruno. The patient presente d with shortness of breath. She was found have a microcytic anemia with a hemoglobin of 7.0; this is a new diagnosis for her. She had a colonoscopy a year ago, showed 1 polyp. She takes Voltaren gel, was taking ibuprofen all summer for osteoarthritis of the knee. She was guaiac negative. Iron stud ies confirmed iron deficiency. She received a unit of packed red cells as well as IV iron. She had upper endoscopy showing gastritis but no active bleeding. Colonoscopy was deferred. She had a stres s test that was negative for ischemia or infarct. She is discharged home. Unchanged medication marianela men other than the advice to discontinue NSAIDs and her topical Voltaren gel. /[id number]/MODL
== END 2017-04-26 11:14 | disposition home or self-care (01) | DRG 812 ==
LOC: F2W 17:13 → OBSVTOIN 04-24 13:05
PROVIDERS: ADMIT Internal Medicine; ATTEND Internal Medicine
PROC: 30233N1 Transfusion of Nonautologous Red Blood Cells into Peripheral Vein, Percutaneous Approach (ICD-10-PCS; 2017-04-24)
PROC: 0DB68ZX Excision of Stomach, Via Natural or Artificial Opening Endoscopic, Diagnostic (ICD-10-PCS; principal; 2017-04-25 13:30)
PROC: 0DB98ZX Excision of Duodenum, Via Natural or Artificial Opening Endoscopic, Diagnostic (ICD-10-PCS; principal; 2017-04-25 13:30)
DX: D50.9 Iron deficiency anemia, unspecified (principal); R06.00 Dyspnea, unspecified; M17.12 Unilateral primary osteoarthritis, left knee; K29.70 Gastritis, unspecified, without bleeding; N18.3 Chronic kidney disease, stage 3 (moderate); M81.0 Age-related osteoporosis without current pathological fracture
CPT/HCPCS: 82607-90; 97116-GP; 97161-GP; 97165-GO; A9500; G0378; G8978-GP-CJ; G8979-GP-CI; G8987-GO-CI; G8988-GO-CI; G8989-GO-CI; J1200; J1940; J2704; J2785; J2916; J3010; P9016; P9040; Q9967